=== PATIENT | female | born 1935 | race Caucasian/White ===

== ENCOUNTER 2022-02-19 16:59 | Inpatient (IN) ==
[2022-02-19] MEDS ORDERED: SODIUM CHLORIDE 1,000 ML IV STA (17:37)
--- NOTE | 2022-02-19 17:45 | ED.PDOC ---
General <ASHLY CARR MD - Last Filed: 02/20/22 07:03> ED Provider: Dr. ASHLY CARR MD Chief Complaint: Non-specific Complaint Stated Complaint: mild back and mouth pain and decreased appetite today, poor historian, nonambulating, c/o generalized weakness, no injury, brought by ems from [place] Time Seen by Provider: 02/19/22 17:19 Information Source: [facility] Primary Care Provider: Jani JUST[facility] Nursing and Triage Documentation Reviewed and Agree: Yes Does patient meet sepsis criteria?: No System Inflammatory Response Syndrome: Not Applicable Sepsis Protocol: For patient's 13 years and over: Temp is 96.8 and below OR 101 and greater Pulse >90 BPM Resp >20/minute Acutely Altered Mental Status Are patient's symptoms suggestive of a new infection, such as: -Pneumonia -Skin, Soft Tissue -Endocarditis -UTI -Bone, Joint Infection -Implantable Device -Acute Abdominal Infection -Wound Infection -Meningitis -Blood Stream Catheter Infection -Unknown Review of Systems <ASHLY CARR MD - Last Filed: 02/20/22 07:03> Review Of Systems Constitutional: Reports Malaise and Weakness; Denies Fever Eyes: Denies Vision change Ears, Nose, Mouth, Throat: Reports Mouth pain; Denies Nose discharge Respiratory: Denies Cough, Short of air, Stridor or Wheezing Cardiac: Denies Chest pain GI: Reports Abdominal pain; Denies Vomiting : Denies Dysuria (dubon) Musculoskeletal: Reports Back pain and Neck pain Skin: Denies Bruising or Cyanosis Neurological: Denies Headache All Other Systems: Other PFSH <ASHLY CARR MD - Last Filed: 02/20/22 07:03> Medical History (Updated 02/19/22 @ 22:45 by KWABENA MEYER RN) DVT (deep venous thrombosis) Enlarged lymph node HTN (hypertension) Malignant neoplasm of urethra UTI (urinary tract infection) Weakness Family History (Updated 02/20/22 @ 03:57 by KWABENA MEYER RN) FATHER Asbestos exposure Mother Asbestos exposure Female Reproductive History Menstrual Hx Hysterectomy: No Hx Tubal Ligation: No Physical Exam <ASHLY CARR MD - Last Filed: 02/20/22 07:03> Physical Exam Appearance: Reports Obese Ill-appearing: Mild Pain Distress: Mild Eyes: Reports ANDREW, EOMI and Conjunctiva clear ENT: Reports Dry mucosa; Denies Rhinorrhea Neck: Supple Respiratory: Reports Airway patent, Breath sounds clear and Breath sounds equal Cardiovascular: Reports RRR GI/: Reports Soft and Nontender Musculoskeletal: Reports No edema and Other (ply cutter weak and equal, pulses and s en intact) Skin: Reports Warm and Dry Neurological: Reports Alert Psychiatric: Reports Depressed <DONOVAN BOND MD - Last Filed: 02/19/22 21:32> Radiology Interpretation Radiology Interpretation By: Radiologist Radiology Results: Positive (1. Increasing pelvic and inguinal lymphadenopathy with questionable left pelvic mass. Findings are concerning for the worsening metastatic disease. 2. Lower lobe pulmonary nodule of concern for metastatic disease.) Exam Interpreted: CT Scan Radiology Interpretation By: Radiologist Radiology Results: Negative Exam Interpreted: CXR <DONOVAN BOND MD - Last Filed: 02/19/22 21:32> Critical Care Note Total Critical Care Time (mins): 0 Course <ASHLY CARR MD - Last Filed: 02/20/22 07:03> Course Hematology/Chemistry: 02/20/22 04:38 02/20/22 04:38 Orders, Labs, Meds: Lab Review 02/19/22 02/19/22 02/19/22 17:53 17:53 17:53 WBC RBC Hgb Hct MCV MCH MCHC RDW Coeff of Duy Plt Count Immature Gran % (Auto) Neut % (Auto) Lymph % (Auto) [place] % (Auto) Eos % (Auto) Baso % (Auto) Neut # (Auto) Lymph # (Auto) [place] # (Auto) Eos # (Auto) Baso # (Auto) Immature Gran # (Auto) PT 11.0 INR 1.06 Sodium Potassium Chloride Carbon Dioxide Anion Gap BUN Creatinine Estimated GFR (MDRD) BUN/Creatinine Ratio Glucose Lactic Acid 1.23 Calcium Total Bilirubin AST ALT Alkaline Phosphatase Troponin I < 0.012 Total Protein Albumin Globulin Albumin/Globulin Ratio Urine Color Urine Clarity Urine pH Ur Specific [place] Urine Protein Urine Glucose (UA) Urine Ketones Urine Blood Urine Nitrite Urine Bilirubin Urine Urobilinogen Ur Leukocyte Esterase Urine Microscopic RBC Urine Microscopic WBC Ur Squamous Epith Cells Urine Bacteria Urine Mucus Urine Yeast SARS-CoV-2 Ag (Rapid) 02/19/22 02/19/22 02/19/22 17:53 17:53 17:56 WBC 13.07 H RBC 3.30 L Hgb 10.2 L Hct 32.1 L MCV 97.3 MCH 30.9 MCHC 31.8 RDW Coeff of Duy 15.0 H Plt Count 495 H Immature Gran % (Auto) 0.7 Neut % (Auto) 78.5 H Lymph % (Auto) 8.9 L [place] % (Auto) 6.7 Eos % (Auto) 4.7 Baso % (Auto) 0.5 Neut # (Auto) 10.3 H Lymph # (Auto) 1.2 [place] # (Auto) 0.9 Eos # (Auto) 0.6 Baso # (Auto) 0.1 Immature Gran # (Auto) 0.1 PT INR Sodium 133.1 L Potassium 4.36 Chloride 94.5 L Carbon Dioxide 33.5 H Anion Gap 9.46 BUN 22.7 H Creatinine 1.22 Estimated GFR (MDRD) 42.00 BUN/Creatinine Ratio 18.60 Glucose 95.6 Lactic Acid Calcium 12.65 H Total Bilirubin 0.41 AST 24.9 ALT 9.3 Alkaline Phosphatase 82.3 Troponin I Total Protein 7.50 Albumin 3.57 Globulin 3.93 Albumin/Globulin Ratio 0.90 Urine Color Urine Clarity Urine pH Ur Specific [place] Urine Protein Urine Glucose (UA) Urine Ketones Urine Blood Urine Nitrite Urine Bilirubin Urine Urobilinogen Ur Leukocyte Esterase Urine Microscopic RBC Urine Microscopic WBC Ur Squamous Epith Cells Urine Bacteria Urine Mucus Urine Yeast SARS-CoV-2 Ag (Rapid) Negative 02/19/22 19:00 WBC RBC Hgb Hct MCV MCH MCHC RDW Coeff of Duy Plt Count Immature Gran % (Auto) Neut % (Auto) Lymph % (Auto) [place] % (Auto) Eos % (Auto) Baso % (Auto) Neut # (Auto) Lymph # (Auto) [place] # (Auto) Eos # (Auto) Baso # (Auto) Immature Gran # (Auto) PT INR Sodium Potassium Chloride Carbon Dioxide Anion Gap BUN Creatinine Estimated GFR (MDRD) BUN/Creatinine Ratio Glucose Lactic Acid Calcium Total Bilirubin AST ALT Alkaline Phosphatase Troponin I Total Protein Albumin Globulin Albumin/Globulin Ratio Urine Color Yellow Urine Clarity Slightly Urine pH 6.5 Ur Specific [place] 1.025 Urine Protein Negative Urine Glucose (UA) Negative Urine Ketones Negative Urine Blood Trace-intact H Urine Nitrite Negative Urine Bilirubin Negative Urine Urobilinogen 0.2 Ur Leukocyte Esterase 2+ H Urine Microscopic RBC 2-5 Urine Microscopic WBC 10-20 Ur Squamous Epith Cells 5-10 Urine Bacteria Trace Urine Mucus Trace Urine Yeast 2+ SARS-CoV-2 Ag (Rapid) Orders Category Date Time Status EKG-(ED ONLY) Stat CARDIO 02/19/22 17:37 Completed CBC W/ AUTO DIFF Stat LAB 02/19/22 17:53 Completed CMP [COMPREHENSIVE METABOLIC PANEL] Stat LAB 02/19/22 17:53 Completed COVID-19 ANTIGEN TEST Stat LAB 02/19/22 17:56 Completed LACTIC ACID Stat LAB 02/19/22 17:53 Completed PT WITH INR Stat LAB 02/19/22 17:53 Completed RAPID STREP SCREEN [MOLECULAR GROUP A STREP] Stat LAB 02/19/22 17:58 Completed TROPONIN I Stat LAB 02/19/22 17:53 Completed URINALYSIS C & S IF INDICATED Stat LAB 02/19/22 19:00 Completed URINE CULTURE Stat LAB 02/19/22 19:00 Received Sodium Chloride 0.9% [Sodium Chloride] 1,000 ml MEDS 02/19/22 17:37 Discontinued IV BOLUS CHEST, 1V AP ONLY Stat RADS 02/19/22 17:[address] ABDOMEN/PELVIS WO CONTRAST Stat RADS 02/19/22 17:[address] CERVICAL SPINE W/O CONTRAST Stat RADS 02/19/22 17:[address] LUMBAR SPINE W/O CONTRAST Stat RADS 02/19/22 17:[address] THORACIC SPINE W/O CONTRAST Stat RADS 02/19/22 17:37 Completed Medications Generic Name Dose Route Start Last Admin Trade Name Freq PRN Reason Stop Dose Admin Acetaminophen 650 mg 02/20/22 01:55 02/20/22 02:11 Acetaminophen 325 Mg Tablet PO 650 mg Q6H PRN Administration Pain Bisacodyl 10 mg 02/19/22 21:27 Bisacodyl 10 Mg Supp.Rect RC DAILY PRN constipation Enoxaparin Sodium 40 mg 02/20/22 09:00 Enoxaparin Sodium 40 Mg/0.4 Ml Syr SUBCUT DAILY GEORGE CEFTRIAXONE/D5W 1 GM PREMIX 1 gm in 50 mls @ 75 mls/hr 02/19/22 21:30 02/19/22 21:52 Rocephin 1 Gm/50 Ml D5w IV 02/22/22 21:29 75 mls/hr BEDTIME GEORGE Administration Sodium Chloride 500 mls @ 125 mls/hr 02/19/22 23:00 02/19/22 23:35 Sodium Chloride IV 125 mls/hr .Q4H GEORGE Administration Magnesium Hydroxide 5 ml 02/19/22 21:27 Magnesium Hydroxide 30 Ml Cup PO DAILY PRN Constipation Ondansetron HCl 4 mg 02/19/22 21:19 Ondansetron Hcl/Pf 4 Mg/2 Ml Sdv IVP Q6H PRN Nausea / Vomiting Oxycodone HCl 5 mg 02/19/22 21:27 02/19/22 22:47 Oxycodone Hcl 5 Mg Tablet PO 5 mg Q6H PRN Administration Severe pain Saccharomyces Boulardii 250 mg 02/20/22 09:00 Saccharomyces Boulardii 250 Mg Capsule PO BID GEORGE Discontinued Medications Generic Name Dose Route Start Last Admin Trade Name Freq PRN Reason Stop Dose Admin Sodium Chloride 1,000 mls @ 1,000 mls/hr 02/19/22 17:37 02/19/22 19:26 Sodium Chloride IV 02/19/22 18:36 1,000 mls/hr BOLUS STA Administration Vital Signs: Temp Pulse Resp BP Pulse Ox 02/19/22 17:03 97.1 F L 73 18 106/46 L 94 L <DONOVAN BOND MD - Last Filed: 02/19/22 21:32> Course Orders, Labs, Meds: Lab Review 02/19/22 02/19/22 02/19/22 17:53 17:53 17:53 WBC RBC Hgb Hct MCV MCH MCHC RDW Coeff of Duy Plt Count Immature Gran % (Auto) Neut % (Auto) Lymph % (Auto) [place] % (Auto) Eos % (Auto) Baso % (Auto) Neut # (Auto) Lymph # (Auto) [place] # (Auto) Eos # (Auto) Baso # (Auto) Immature Gran # (Auto) PT 11.0 INR 1.06 Sodium Potassium Chloride Carbon Dioxide Anion Gap BUN Creatinine Estimated GFR (MDRD) BUN/Creatinine Ratio Glucose Lactic Acid 1.23 Calcium Total Bilirubin AST ALT Alkaline Phosphatase Troponin I < 0.012 Total Protein Albumin Globulin Albumin/Globulin Ratio Urine Color Urine Clarity Urine pH Ur Specific [place] Urine Protein Urine Glucose (UA) Urine Ketones Urine Blood Urine Nitrite Urine Bilirubin Urine Urobilinogen Ur Leukocyte Esterase Urine Microscopic RBC Urine Microscopic WBC Ur Squamous Epith Cells Urine Bacteria Urine Mucus Urine Yeast SARS-CoV-2 Ag (Rapid) 02/19/22 02/19/22 02/19/22 17:53 17:53 17:56 WBC 13.07 H RBC 3.30 L Hgb 10.2 L Hct 32.1 L MCV 97.3 MCH 30.9 MCHC 31.8 RDW Coeff of Duy 15.0 H Plt Count 495 H Immature Gran % (Auto) 0.7 Neut % (Auto) 78.5 H Lymph % (Auto) 8.9 L [place] % (Auto) 6.7 Eos % (Auto) 4.7 Baso % (Auto) 0.5 Neut # (Auto) 10.3 H Lymph # (Auto) 1.2 [place] # (Auto) 0.9 Eos # (Auto) 0.6 Baso # (Auto) 0.1 Immature Gran # (Auto) 0.1 PT INR Sodium 133.1 L Potassium 4.36 Chloride 94.5 L Carbon Dioxide 33.5 H Anion Gap 9.46 BUN 22.7 H Creatinine 1.22 Estimated GFR (MDRD) 42.00 BUN/Creatinine Ratio 18.60 Glucose 95.6 Lactic Acid Calcium 12.65 H Total Bilirubin 0.41 AST 24.9 ALT 9.3 Alkaline Phosphatase 82.3 Troponin I Total Protein 7.50 Albumin 3.57 Globulin 3.93 Albumin/Globulin Ratio 0.90 Urine Color Urine Clarity Urine pH Ur Specific [place] Urine Protein Urine Glucose (UA) Urine Ketones Urine Blood Urine Nitrite Urine Bilirubin Urine Urobilinogen Ur Leukocyte Esterase Urine Microscopic RBC Urine Microscopic WBC Ur Squamous Epith Cells Urine Bacteria Urine Mucus Urine Yeast SARS-CoV-2 Ag (Rapid) Negative 02/19/22 19:00 WBC RBC Hgb Hct MCV MCH MCHC RDW Coeff of Duy Plt Count Immature Gran % (Auto) Neut % (Auto) Lymph % (Auto) [place] % (Auto) Eos % (Auto) Baso % (Auto) Neut # (Auto) Lymph # (Auto) [place] # (Auto) Eos # (Auto) Baso # (Auto) Immature Gran # (Auto) PT INR Sodium Potassium Chloride Carbon Dioxide Anion Gap BUN Creatinine Estimated GFR (MDRD) BUN/Creatinine Ratio Glucose Lactic Acid Calcium Total Bilirubin AST ALT Alkaline Phosphatase Troponin I Total Protein Albumin Globulin Albumin/Globulin Ratio Urine Color Yellow Urine Clarity Slightly Urine pH 6.5 Ur Specific [place] 1.025 Urine Protein Negative Urine Glucose (UA) Negative Urine Ketones Negative Urine Blood Trace-intact H Urine Nitrite Negative Urine Bilirubin Negative Urine Urobilinogen 0.2 Ur Leukocyte Esterase 2+ H Urine Microscopic RBC 2-5 Urine Microscopic WBC 10-20 Ur Squamous Epith Cells 5-10 Urine Bacteria Trace Urine Mucus Trace Urine Yeast 2+ SARS-CoV-2 Ag (Rapid) Orders Category Date Time Status EKG-(ED ONLY) Stat CARDIO 02/19/22 17:37 Completed CBC W/ AUTO DIFF Stat LAB 02/19/22 17:53 Completed CMP [COMPREHENSIVE METABOLIC PANEL] Stat LAB 02/19/22 17:53 Completed COVID-19 ANTIGEN TEST Stat LAB 02/19/22 17:56 Completed LACTIC ACID Stat LAB 02/19/22 17:53 Completed PT WITH INR Stat LAB 02/19/22 17:53 Completed RAPID STREP SCREEN [MOLECULAR GROUP A STREP] Stat LAB 02/19/22 17:58 Completed TROPONIN I Stat LAB 02/19/22 17:53 Completed URINALYSIS C & S IF INDICATED Stat LAB 02/19/22 19:00 Completed URINE CULTURE Stat LAB 02/19/22 19:00 Received Sodium Chloride 0.9% [Sodium Chloride] 1,000 ml MEDS 02/19/22 17:37 Discontinued IV BOLUS CHEST, 1V AP ONLY Stat RADS 02/19/22 17:[address] ABDOMEN/PELVIS WO CONTRAST Stat RADS 02/19/22 17:[address] CERVICAL SPINE W/O CONTRAST Stat RADS 02/19/22 17:[address] LUMBAR SPINE W/O CONTRAST Stat RADS 02/19/22 17:[address] THORACIC SPINE W/O CONTRAST Stat RADS 02/19/22 17:37 Completed Medications Generic Name Dose Route Start Last Admin Trade Name Freq PRN Reason Stop Dose Admin Acetaminophen 650 mg 02/20/22 01:55 02/20/22 02:11 Acetaminophen 325 Mg Tablet PO 650 mg Q6H PRN Administration Pain Bisacodyl 10 mg 02/19/22 21:27 Bisacodyl 10 Mg Supp.Rect RC DAILY PRN constipation Enoxaparin Sodium 40 mg 02/20/22 09:00 Enoxaparin Sodium 40 Mg/0.4 Ml Syr SUBCUT DAILY GEORGE CEFTRIAXONE/D5W 1 GM PREMIX 1 gm in 50 mls @ 75 mls/hr 02/19/22 21:30 02/19/22 21:52 Rocephin 1 Gm/50 Ml D5w IV 02/22/22 21:29 75 mls/hr BEDTIME GEORGE Administration Sodium Chloride 500 mls @ 125 mls/hr 02/19/22 23:00 02/19/22 23:35 Sodium Chloride IV 125 mls/hr .Q4H GEORGE Administration Magnesium Hydroxide 5 ml 02/19/22 21:27 Magnesium Hydroxide 30 Ml Cup PO DAILY PRN Constipation Ondansetron HCl 4 mg 02/19/22 21:19 Ondansetron Hcl/Pf 4 Mg/2 Ml Sdv IVP Q6H PRN Nausea / Vomiting Oxycodone HCl 5 mg 02/19/22 21:27 02/19/22 22:47 Oxycodone Hcl 5 Mg Tablet PO 5 mg Q6H PRN Administration Severe pain Saccharomyces Boulardii 250 mg 02/20/22 09:00 Saccharomyces Boulardii 250 Mg Capsule PO BID GEORGE Discontinued Medications Generic Name Dose Route Start Last Admin Trade Name Freq PRN Reason Stop Dose Admin Sodium Chloride 1,000 mls @ 1,000 mls/hr 02/19/22 17:37 02/19/22 19:26 Sodium Chloride IV 02/19/22 18:36 1,000 mls/hr BOLUS STA Administration Vital Signs: Temp Pulse Resp BP Pulse Ox 02/19/22 17:03 97.1 F L 73 18 106/46 L 94 L Discharge Plan Discharge Patient Disposition: PLACED OBSERVATION Discharge Problem: Hypercalcemia, Dehydration, mild, Dry mouth ED Provider: ASHLY CARR Condition: Fair <ASHLY CARR MD - Last Filed: 02/20/22 07:03> Physician Progress Note: []care to Dr Bond at 19:00
--- NOTE | 2022-02-19 19:10 | CT ---
EXAM: CT thoracic spine without contrast HISTORY: Back pain. COMPARISON: CT thoracic 10/02/2016 the heading TECHNIQUE: Serial axial images of the thoracic spine were obtained without contrast. These were vie wed in multiple planes. FINDINGS: There is no acute compression fracture or subluxation. There is mild disc space narrowing with osteophyte formation. There is mild facet arthropathy. There is no lytic or blastic lesion. There is mild fibrosis with interstitial thickening and small airways thickening. There is a small c avitary lesion in the left upper lobe measuring 0.9 cm. IMPRESSION: 1. No acute compression fracture or subluxation with scattered degenerative disease. 2. Scattered fibrosis and interstitial thickening in the lungs. There is a small cavitary lesion in the left upper lobe. Follow-up CT chest is recommended. All CT scans are performed using dose optimization techniques as appropriate to the performed exam an d include at least one of the following: Automated exposure control, adjustment of the mA and/or kV according t o size, and the use of iterative reconstruction technique.
[2022-02-19 19:11] LABS: BILIRUBIN,URINE Negative (NEGATIVE); CLARITY,URINE Slightly (CLEAR); COLOR,URINE Yellow (YELLOW); GLUCOSE, URINE (UA) Negative (NEGATIVE); KETONES,URINE Negative (NEGATIVE); LEUKOCYTE ESTERASE ,URINE 2+ (NEGATIVE); NITRITE,URINE Negative (NEGATIVE); PH,URINE 6.5 (5-9); PROTEIN,URINE Negative (NEGATIVE); URINE, BLOOD Trace-intact (NEGATIVE); UROBILINOGEN,URINE 0.2 (0.2)
--- NOTE | 2022-02-19 19:12 | CT ---
EXAM: CT cervical spine. HISTORY: Back pain. No known injury. COMPARISON: None. TECHNIQUE: Contiguous axial images at 2 mm intervals were obtained from the base of the skull to the thoracic spine. Sagittal and coronal reformats were reviewed. No contrast was given. FINDINGS: The patient is leaning to the right which limits evaluation. There is widening of the atla nto-axial this is on the left which may be due to positioning. There is normal curvature and alignme nt. The vertebral heights are well maintained. There are no acute or healing fractures. There are n o lytic or blastic lesions. Extensive degenerative changes. No disc bulges are identified. The sof t tissues are normal. The airway is widely patent. Limited views of the lung apices are normal. C 2-3: No spinal canal or neural foraminal narrowing. C 3-4: Disc narrowing. Facet hypertrophy. Bilateral neural foramen narrowing, left greater than rig ht. C 4-5: Disc narrowing. Posterior osteophytes. Facet hypertrophy. Severe right neural foramen narro wing. C 5-6: Disc narrowing. Large posterior osteophytes. Severe right neural foramen narrowing. Mild le ft neural foramen narrowing. C 6-7: Disc narrowing. Posterior osteophytes. Right neural foraminal narrowing. IMPRESSION: 1. No acute fractures. 2. Asymmetric widening of the atlanto-axial this is on the left may be due to positioning. 3. 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 All CT scans are performed using dose optimization techniques as appropriate to the performed exam an d include at least one of the following: Automated exposure control, adjustment of the mA and/or kV according t o size, and the use of iterative reconstruction technique.
[2022-02-19 19:18] LABS: BACTERIA,URINE TRACE (NOT PRESENT); MUCUS,URINE TRACE (NOT PRESENT); YEAST,URINE 2+ (NOT PRESENT)
--- NOTE | 2022-02-19 19:20 | CT ---
EXAM: CT of the lumbar spine without contrast History: Lower back pain. Technique: Multiplanar CT images through the lumbar spine were obtained without the administration o f IV contrast Findings: No acute fracture or subluxation of the lumbar spine. Intact posterior fusion hardware at L4-5. No suspicious lytic or blastic osseous lesions. Osteopenia. Degenerative changes of the sacr oiliac joints with bridging osteophytes seen on the left. All T12-L1: No significant central canal stenosis or neural foraminal narrowing. L1-2: No significant central canal stenosis or neural foraminal narrowing. L2-3: No significant central canal stenosis. Severe right and moderate left neural foraminal narrow ing secondary to ligamentous and facet hypertrophy. L3-4: Evaluation is limited due to streak artifact from the hardware but there is probably moderate central canal stenosis. Moderate to severe bilateral neural foraminal narrowing secondary to ligamen tous and facet hypertrophy L4-5: Evaluation of the spinal canal is limited due to the streak artifact from hardware. No obviou s bony neural foraminal narrowing. Moderate to severe bilateral neural foraminal narrowing secondary to ligamentous and facet hypertrophy. L5-S1: No significant bony central canal stenosis or neural foraminal narrowing. Impression: 1. No acute osseous abnormality of the lumbar spine. 2. Intact hardware. 3. Degenerative changes with level by level analysis as detailed above. All CT scans are performed using dose optimization techniques as appropriate to the performed exam an d include at least one of the following: Automated exposure control, adjustment of the mA and/or kV according t o size, and the use of iterative reconstruction technique.
--- NOTE | 2022-02-19 19:21 | CT ---
EXAM: CT abdomen pelvis without contrast HISTORY: Abdominal pain COMPARISON: CT abdomen pelvis 01/09/2022 TECHNIQUE: Serial axial images of the abdomen pelvis were performed from the lung bases through the inferior pelvis without contrast. These were viewed in multiple planes. FINDINGS: Lung bases demonstrate bronchiectasis and fibrosis. There is a 0.8 cm left lower lobe pul monary nodule on image 161. There is a 1 cm pulmonary nodule in the right lower lobe on image 154. Evaluation is limited. The liver is unremarkable. Gallbladder is distended. Kidneys are unremarkab le. Spleen is unremarkable. The pancreas is normal. The stomach is minimally distended. The small bowel in the abdomen pelvis is unremarkable. The colon demonstrates a moderate amount of s tool. There is a heterogeneous mass in the left pelvis measuring approximately 3.4 cm in diameter. There is an additional mass adjacent to the distal colon in the left pelvis measuring 2.6 centimeters which has increased in size. There is bilateral pelvic lymphadenopathy measuring 2.0 x 2.9 cm in th e right and up to 2.6 cm on the left. There is a large right inguinal mass which has increased measu ring 4.1 x 2.9 cm. An enlarged left inguinal lymph node measuring 2.4 x 2.2 cm. There is degenerativ e disease throughout the lumbar spine with hardware at L4-L5. IMPRESSION: 1. Increasing pelvic and inguinal lymphadenopathy with questionable left pelvic mass. Findings are concerning for the worsening metastatic disease. 2. Lower lobe pulmonary nodule of concern for metastatic disease. 3. Otherwise no significant interval change. All CT scans are performed using dose optimization techniques as appropriate to the performed exam an d include at least one of the following: Automated exposure control, adjustment of the mA and/or kV according t o size, and the use of iterative reconstruction technique.
[2022-02-19 19:34] LABS: BASOPHILS # (AUTO) 0.1 K/uL (0-0.2); BASOPHILS % (AUTO) 0.5 % (0.0-3.0); EOSINOPHILS # (AUTO) 0.6 K/ul (0.0-0.7); EOSINOPHILS % (AUTO) 4.7 % (0.0-7.0); HEMATOCRIT 32.1 % (37.0-47.0); HEMOGLOBIN 10.2 g/dl (12.0-16.0); IMMATURE GRANULOCYTE # (AUTO) 0.1 (0.0-1.0); IMMATURE GRANULOCYTE % (AUTO) 0.7 % (0.0-5.0); LYMPHOCYTES # (AUTO) 1.2 K/uL (0.60-3.4); LYMPHOCYTES % (AUTO) 8.9 (10.0-50.0); MEAN CORPUSCULAR HEMOGLOBIN 30.9 pg (27.0-31.0); MEAN CORPUSCULAR HGB CONC 31.8 (31.8-35.4); MEAN CORPUSCULAR VOLUME 97.3 fl (81.0-99.0); MONOCYTES # (AUTO) 0.9 K/uL (0.4-2.0); MONOCYTES % (AUTO) 6.7 (0-10); NEUTROPHILS # (AUTO) 10.3 K/ul (2.0-6.9); NEUTROPHILS % (AUTO) 78.5 % (42.2-75.2); PLATELET COUNT 495 10^3/uL (140-440); WHITE BLOOD COUNT 13.07 K/ul (4.6-10.2)
[2022-02-19 19:39] LABS: ALANINE AMINOTRANSFERASE 9.3 U/L (0-35); ALBUMIN 3.57 g/dL (3.5-5.0); ALKALINE PHOSPHATASE 82.3 U/L (53-141); ASPARTATE AMINO TRANSFERASE 24.9 U/L (14-36); BILIRUBIN,TOTAL 0.41 mg/dL (0.2-1.3); BLOOD UREA NITROGEN 22.7 mg/dL (7-17); CALCIUM 12.65 mg/dL (8.4-10.2); CARBON DIOXIDE 33.5 mmol/L (22-30.0); CHLORIDE 94.5 mmol/L (98-107); CREATININE 1.22 mg/dL (0.60-1.30); GLUCOSE 95.6 mg/dL (74-106); POTASSIUM 4.36 mmol/L (3.5-5.1); SODIUM 133.1 mmol/L (134.5-145); TOTAL PROTEIN 7.5 g/dL (6.3-8.2)
--- NOTE | 2022-02-19 19:52 | DI ---
EXAM: Single frontal view of the chest HISTORY: Pain post fall. COMPARISON: CT thoracic spine same day FINDINGS: There is scattered degenerative disease throughout the spine and shoulders. The cavitary n odule in the left upper lobe and the bilateral pulmonary nodules from prior CT are not visualized on x-ray. IMPRESSION: No acute abnormality to account for pain.
[2022-02-19] MEDS ORDERED: ZOFRAN 4 MG/2 ML IVP PRN (21:19)
[2022-02-19] MEDS ORDERED: DULCOLAX RC PRN (21:27)
[2022-02-19] MEDS ORDERED: MILK OF MAGNESIA PO PRN (21:27)
[2022-02-19] MEDS: ROCEPHIN 1 GM/50 ML D5W 1 GM/50 ML BAG IV SCH (21:52)
[2022-02-19] MEDS: OXYCODONE PO PRN (22:47)
[2022-02-19 23:04] VITALS: BMI 20.9
[2022-02-19] MEDS: SODIUM CHLORIDE 500 ML IV SCH (23:35)
[2022-02-20] MEDS: TYLENOL PO PRN (02:11)
[2022-02-20 05:00] LABS: BASOPHILS # (AUTO) 0.1 K/uL (0-0.2); BASOPHILS % (AUTO) 0.5 % (0.0-3.0); EOSINOPHILS # (AUTO) 0.8 K/ul (0.0-0.7); EOSINOPHILS % (AUTO) 6.4 % (0.0-7.0); HEMATOCRIT 27.3 % (37.0-47.0); HEMOGLOBIN 8.9 g/dl (12.0-16.0); IMMATURE GRANULOCYTE # (AUTO) 0.1 (0.0-1.0); IMMATURE GRANULOCYTE % (AUTO) 0.6 % (0.0-5.0); LYMPHOCYTES # (AUTO) 1.1 K/uL (0.60-3.4); LYMPHOCYTES % (AUTO) 9.5 (10.0-50.0); MEAN CORPUSCULAR HEMOGLOBIN 31.6 pg (27.0-31.0); MEAN CORPUSCULAR HGB CONC 32.6 (31.8-35.4); MEAN CORPUSCULAR VOLUME 96.8 fl (81.0-99.0); MONOCYTES # (AUTO) 0.9 K/uL (0.4-2.0); MONOCYTES % (AUTO) 7.8 (0-10); NEUTROPHILS # (AUTO) 8.8 K/ul (2.0-6.9); NEUTROPHILS % (AUTO) 75.2 % (42.2-75.2); PLATELET COUNT 419 10^3/uL (140-440); RDW COEFFICIENT OF VARIATION 14.7 % (11.6-14.8); RED BLOOD COUNT 2.82 10^6/ul (4.20-5.40); WHITE BLOOD COUNT 11.74 K/ul (4.6-10.2)
[2022-02-20 05:14] LABS: BLOOD UREA NITROGEN 20.3 mg/dL (7-17); CALCIUM 11.63 mg/dL (8.4-10.2); CARBON DIOXIDE 27.4 mmol/L (22-30.0); CHLORIDE 101.5 mmol/L (98-107); CREATININE 1.06 mg/dL (0.60-1.30); GLUCOSE 89.4 mg/dL (74-106); POTASSIUM 3.7 mmol/L (3.5-5.1); SODIUM 133.2 mmol/L (134.5-145)
[2022-02-20] MEDS: SODIUM CHLORIDE 500 ML IV SCH ×2 (07:08→08:23)
[2022-02-20] MEDS: OXYCODONE PO PRN ×2 (07:14→17:18)
[2022-02-20] MEDS: SODIUM CHLORIDE 1,000 ML IV SCH ×2 (08:50→22:54)
[2022-02-20] MEDS: LOVENOX SUBCUT SCH (08:55)
[2022-02-20] MEDS: NYSTATIN ORAL SUSP PO SCH ×4 (08:55→20:37)
[2022-02-20] MEDS: FLORASTOR PO SCH ×2 (08:55→20:37)
[2022-02-20] MEDS: NYSTOP POWDER TP SCH ×4 (08:55→20:38)
--- NOTE | 2022-02-20 09:30 | PCM.PROG ---
Date Seen by Provider: 02/20/22 Time Seen by Provider: 09:24 Subjective: cat scan showed mets, pt informed of findings, pt is consulting with family members to determine if she wants to see an oncologist Objective: Vitals: T=97.4 F, P=67, R=18, BP=96/51, SPO2=95 HEENT: []conjunctiva clear Neck: []supple Lungs: [] clear CVS: []RRR Abdomen: []soft and nontender Extremities: []warm and dry Neurological: []alert and oriented Skin: []bilateral groin rash suggests yeast Lab/Tests/Diagnostic Imaging: [] calcium 11.6, wbc 11.7, Hb 8.9 (1) Metastasis: Status: Acute Code(s): C79.9 - Secondary malignant neoplasm of unspecified site SNOMED Code(s): 180595259 (2) Hypercalcemia: Status: Acute Code(s): E83.52 - Hypercalcemia SNOMED Code(s): 42791042 (3) Dry mouth: Status: Acute Code(s): R68.2 - Dry mouth, unspecified SNOMED Code(s): 70280937 (4) Dehydration, mild: Status: Acute Code(s): E86.0 - Dehydration SNOMED Code(s): 3609795097132 Assessment: pt refused nystatin powder, will start oral diflucan, swish and swallow for dry mouth, pt has no allergy to tylenol Plan: check Mg level, continue IV hydration with NS 125cc/hr, start pamidronate 30mg iv over 4 hrs for hypercalcemia care to Dr Vilchis at 19:00
[2022-02-20] MEDS: DIFLUCAN PO SCH (09:40)
[2022-02-20] MEDS ORDERED: MILK OF MAGNESIA PO PRN (10:00)
[2022-02-20] MEDS ORDERED: PAMIDRONATE DISODIUM IV ONE (14:00)
[2022-02-20] MEDS ORDERED: SODIUM CHLORIDE IV ONE (14:00)
[2022-02-20] MEDS: ROCEPHIN 1 GM/50 ML D5W 1 GM/50 ML BAG IV SCH (21:29)
[2022-02-21] MEDS: OXYCODONE PO PRN ×2 (00:29→19:31)
[2022-02-21] MEDS: NYSTATIN ORAL SUSP PO SCH ×4 (05:41→20:34)
[2022-02-21 06:03] LABS: BLOOD UREA NITROGEN 15.2 mg/dL (7-17); CALCIUM 10.49 mg/dL (8.4-10.2); CARBON DIOXIDE 23.9 mmol/L (22-30.0); CHLORIDE 108.8 mmol/L (98-107); CREATININE 0.86 mg/dL (0.60-1.30); GLUCOSE 87.6 mg/dL (74-106); POTASSIUM 3.74 mmol/L (3.5-5.1); SODIUM 134.5 mmol/L (134.5-145)
[2022-02-21 06:16] LABS: BASOPHILS % (AUTO) 0.3 % (0.0-3.0); EOSINOPHILS # (AUTO) 0.6 K/ul (0.0-0.7); EOSINOPHILS % (AUTO) 5.8 % (0.0-7.0); HEMATOCRIT 27.7 % (37.0-47.0); HEMOGLOBIN 8.7 g/dl (12.0-16.0); IMMATURE GRANULOCYTE # (AUTO) 0.1 (0.0-1.0); IMMATURE GRANULOCYTE % (AUTO) 0.6 % (0.0-5.0); LYMPHOCYTES % (AUTO) 8.9 (10.0-50.0); MEAN CORPUSCULAR HEMOGLOBIN 30.9 pg (27.0-31.0); MEAN CORPUSCULAR HGB CONC 31.4 (31.8-35.4); MEAN CORPUSCULAR VOLUME 98.2 fl (81.0-99.0); MONOCYTES # (AUTO) 0.8 K/uL (0.4-2.0); MONOCYTES % (AUTO) 7.3 (0-10); NEUTROPHILS # (AUTO) 8.5 K/ul (2.0-6.9); NEUTROPHILS % (AUTO) 77.1 % (42.2-75.2); PLATELET COUNT 362 10^3/uL (140-440); RDW COEFFICIENT OF VARIATION 15.1 % (11.6-14.8); RED BLOOD COUNT 2.82 10^6/ul (4.20-5.40); WHITE BLOOD COUNT 11.04 K/ul (4.6-10.2)
[2022-02-21] MEDS ORDERED: OXYCODONE PO PRN (06:23)
[2022-02-21] MEDS: SODIUM CHLORIDE 1,000 ML IV SCH ×4 (06:34→21:56)
[2022-02-21] MEDS: NYSTOP POWDER TP SCH ×2 (08:29→20:33)
[2022-02-21] MEDS: DIFLUCAN PO SCH (08:31)
[2022-02-21] MEDS: FLORASTOR PO SCH ×2 (08:31→20:34)
[2022-02-21] MEDS: LOVENOX SUBCUT SCH (08:31)
--- NOTE | 2022-02-21 10:57 | PCM.PROG ---
Date Seen by Provider: 02/21/22 Time Seen by Provider: 10:54 Subjective: pt probably over medicated with oxy, pt w/o complaint, decreased appetite, will continue iv fluid, still waiting to hear back from Saranya regarding treatment wishes for metastatic cancer Objective: Vitals: T=98.3 F, P=70, R=16, RV=817/61, SPO2=97 HEENT: []conjunctiva clear Neck: []supple Lungs: [] clear CVS: []RRR Abdomen: []soft and nontender Extremities: []warm and dry Neurological: []oriented Skin: []pink Lab/Tests/Diagnostic Imaging: [] calcium 10.4 (1) Metastasis: Status: Acute Code(s): C79.9 - Secondary malignant neoplasm of unspecified site SNOMED Code(s): 636131591 (2) Hypercalcemia: Status: Acute Code(s): E83.52 - Hypercalcemia SNOMED Code(s): 35956992 (3) Dry mouth: Status: Acute Code(s): R68.2 - Dry mouth, unspecified SNOMED Code(s): 86397123 (4) Dehydration, mild: Status: Acute Code(s): E86.0 - Dehydration SNOMED Code(s): 4288430398854 Plan: decrease oxycodone from 7.5 to 5mg q6 prn, start gabapentin 300mg po qd care to Dr Vilchis at 19:00
[2022-02-21] MEDS: TYLENOL PO PRN (17:24)
[2022-02-21] MEDS: ROCEPHIN 1 GM/50 ML D5W 1 GM/50 ML BAG IV SCH (20:31)
[2022-02-22] MEDS: OXYCODONE PO PRN ×2 (04:07→13:10)
[2022-02-22] MEDS: SODIUM CHLORIDE 1,000 ML IV SCH ×3 (06:26→17:09)
[2022-02-22] MEDS: NYSTATIN ORAL SUSP PO SCH ×4 (06:26→20:36)
[2022-02-22 07:42] LABS: BASOPHILS # (AUTO) 0.1 K/uL (0-0.2); BASOPHILS % (AUTO) 0.4 % (0.0-3.0); EOSINOPHILS # (AUTO) 0.6 K/ul (0.0-0.7); EOSINOPHILS % (AUTO) 4.9 % (0.0-7.0); HEMATOCRIT 30.2 % (37.0-47.0); HEMOGLOBIN 9.3 g/dl (12.0-16.0); IMMATURE GRANULOCYTE # (AUTO) 0.1 (0.0-1.0); IMMATURE GRANULOCYTE % (AUTO) 0.6 % (0.0-5.0); LYMPHOCYTES # (AUTO) 0.9 K/uL (0.60-3.4); LYMPHOCYTES % (AUTO) 7.5 (10.0-50.0); MEAN CORPUSCULAR HEMOGLOBIN 30.5 pg (27.0-31.0); MEAN CORPUSCULAR HGB CONC 30.8 (31.8-35.4); MONOCYTES # (AUTO) 0.7 K/uL (0.4-2.0); MONOCYTES % (AUTO) 6.2 (0-10); NEUTROPHILS # (AUTO) 9.1 K/ul (2.0-6.9); NEUTROPHILS % (AUTO) 80.4 % (42.2-75.2); PLATELET COUNT 408 10^3/uL (140-440); RDW COEFFICIENT OF VARIATION 15.3 % (11.6-14.8); RED BLOOD COUNT 3.05 10^6/ul (4.20-5.40); WHITE BLOOD COUNT 11.33 K/ul (4.6-10.2)
[2022-02-22 07:59] LABS: ALANINE AMINOTRANSFERASE 7.7 U/L (0-35); ALBUMIN 2.59 g/dL (3.5-5.0); ALKALINE PHOSPHATASE 61.7 U/L (53-141); ASPARTATE AMINO TRANSFERASE 21.6 U/L (14-36); BILIRUBIN,TOTAL 0.24 mg/dL (0.2-1.3); BLOOD UREA NITROGEN 10.2 mg/dL (7-17); CALCIUM 9.51 mg/dL (8.4-10.2); CARBON DIOXIDE 23.3 mmol/L (22-30.0); CHLORIDE 109.4 mmol/L (98-107); CREATININE 0.77 mg/dL (0.60-1.30); GLUCOSE 89.7 mg/dL (74-106); POTASSIUM 3.54 mmol/L (3.5-5.1); SODIUM 136.6 mmol/L (134.5-145); TOTAL PROTEIN 6.05 g/dL (6.3-8.2)
[2022-02-22] MEDS: FLORASTOR PO SCH ×2 (08:35→20:35)
[2022-02-22] MEDS: LOVENOX SUBCUT SCH (08:35)
[2022-02-22] MEDS: NYSTOP POWDER TP SCH ×2 (08:35→20:36)
[2022-02-22] MEDS: DIFLUCAN PO SCH (08:35)
[2022-02-22] MEDS ORDERED: NEURONTIN PO SCH (09:00)
--- NOTE | 2022-02-22 09:14 | PCM.PROG ---
Date Seen by Provider: 02/22/22 Time Seen by Provider: 09:11 Subjective: pt bed bound (nursing turning pt q2 hrs), pt wakefulness improved on lower narcotic dose Objective: Vitals: T=98.0 F, P=76, R=18, TO=050/62, SPO2=97 HEENT: []conjunctiva clear Neck: []supple Lungs: [] clear CVS: []RRR Abdomen: []soft and nontender Extremities: []warm and dry Neurological: []alert Skin: []pink Lab/Tests/Diagnostic Imaging: [] calcium 9.5 (1) Metastasis: Status: Acute Code(s): C79.9 - Secondary malignant neoplasm of unspecified site SNOMED Code(s): 526859138 (2) Hypercalcemia: Status: Acute Code(s): E83.52 - Hypercalcemia SNOMED Code(s): 21067039 (3) Dry mouth: Status: Acute Code(s): R68.2 - Dry mouth, unspecified SNOMED Code(s): 68651697 (4) Dehydration, mild: Status: Acute Code(s): E86.0 - Dehydration SNOMED Code(s): 9207137909004 Plan: family requests stopping gabapentin as it makes her legs restless, feeding pt w/ assistance only, awaiting speech pathology eval, start discharge planning, family is aware of pt cancer diagnosis and states that pt is scheduled for a PET scan at [facility] to Dr Vilchis at 19:00
[2022-02-22] MEDS: ROCEPHIN 1 GM/50 ML D5W 1 GM/50 ML BAG IV SCH (20:34)
[2022-02-23] MEDS: OXYCODONE PO PRN ×3 (04:56→21:38)
[2022-02-23] MEDS: SODIUM CHLORIDE 1,000 ML IV SCH ×2 (05:44→20:10)
[2022-02-23] MEDS: NYSTATIN ORAL SUSP PO SCH ×4 (05:47→20:09)
[2022-02-23 06:36] LABS: BILIRUBIN,URINE Negative (NEGATIVE); CLARITY,URINE Clear (CLEAR); COLOR,URINE Yellow (YELLOW); GLUCOSE, URINE (UA) Negative (NEGATIVE); KETONES,URINE Negative (NEGATIVE); LEUKOCYTE ESTERASE ,URINE Trace (NEGATIVE); NITRITE,URINE Negative (NEGATIVE); PH,URINE 5.5 (5-9); PROTEIN,URINE Negative (NEGATIVE); URINE, BLOOD Trace-lysed (NEGATIVE); UROBILINOGEN,URINE 0.2 (0.2)
[2022-02-23 06:41] LABS: URINE RBC, MICROSCOPIC 30-50 (0-2); URINE WBC, MICROSCOPIC 20-30 (0-2)
[2022-02-23 06:42] LABS: BACTERIA,URINE 2+ (NOT PRESENT); MUCUS,URINE 2+ (NOT PRESENT)
[2022-02-23] MEDS: FLORASTOR PO SCH ×2 (08:41→20:09)
[2022-02-23] MEDS: LOVENOX SUBCUT SCH (08:42)
[2022-02-23] MEDS: NYSTOP POWDER TP SCH ×2 (08:42→20:09)
[2022-02-23] MEDS ORDERED: MAGNESIUM SULFATE 1 GM/2 ML VIAL 2 GM in SODIUM CHLORIDE 100ML 100 ML IV ONE (10:44)
--- NOTE | 2022-02-23 10:51 | PCM.PROG ---
Date Seen by Provider: 02/23/22 Time Seen by Provider: 10:00 Subjective: Feeling better. Able to take eat and drink. No new problems. Objective: Vitals: T=98.2 F, P=72, R=14, ZP=945/57, SPO2=96 HEENT: [wnl] Neck: [supple] Lungs: [overall diminshed, but clear] CVS: [RRR] Abdomen: [soft, BS] Extremities: [Intact] Neurological: [Grossly intact] Skin: [WNL] Lab/Tests/Diagnostic Imaging: [Calcium coming down, 9-10 range today, Renal fxn improved, Mg low.] (1) Metastasis: Status: Acute Code(s): C79.9 - Secondary malignant neoplasm of unspecified site SNOMED Code(s): 982639121 Assessment: Unchanged. (2) Hypercalcemia: Status: Acute Code(s): E83.52 - Hypercalcemia SNOMED Code(s): 88220706 Assessment: Improving, Ca 9.5 today. (3) Dehydration, mild: Status: Acute Code(s): E86.0 - Dehydration SNOMED Code(s): 8621429418502 Assessment: Improved with IVF, BUN 10 and Cr. 0.7 (4) Dry mouth: Status: Acute Code(s): R68.2 - Dry mouth, unspecified SNOMED Code(s): 26914926 (5) Cystitis: Status: Acute Code(s): N30.90 - Cystitis, unspecified without hematuria SNOMED Code(s): 45423753 Assessment: UTI on rocephin, should be a C and S pending. Plan: Continue current management, check labs in the morning. Add a dose of IV mag. Likely d/c tomorrow.
[2022-02-23] MEDS ORDERED: MAGNESIUM SULFATE 1 GM/100 ML D5W 2 GM/200 ML BAG IV ONE (11:00)
[2022-02-23] MEDS: ROCEPHIN 1 GM/50 ML D5W 1 GM/50 ML BAG IV SCH (20:10)
[2022-02-24 05:26] LABS: BASOPHILS % (AUTO) 0.3 % (0.0-3.0); EOSINOPHILS # (AUTO) 0.4 K/ul (0.0-0.7); HEMATOCRIT 26.8 % (37.0-47.0); HEMOGLOBIN 8.5 g/dl (12.0-16.0); IMMATURE GRANULOCYTE # (AUTO) 0.1 (0.0-1.0); IMMATURE GRANULOCYTE % (AUTO) 0.7 % (0.0-5.0); LYMPHOCYTES % (AUTO) 8.5 (10.0-50.0); MEAN CORPUSCULAR HEMOGLOBIN 30.2 pg (27.0-31.0); MEAN CORPUSCULAR HGB CONC 31.7 (31.8-35.4); MEAN CORPUSCULAR VOLUME 95.4 fl (81.0-99.0); MONOCYTES # (AUTO) 0.8 K/uL (0.4-2.0); MONOCYTES % (AUTO) 6.9 (0-10); NEUTROPHILS # (AUTO) 9.5 K/ul (2.0-6.9); NEUTROPHILS % (AUTO) 80.6 % (42.2-75.2); PLATELET COUNT 328 10^3/uL (140-440); RDW COEFFICIENT OF VARIATION 15.1 % (11.6-14.8); RED BLOOD COUNT 2.81 10^6/ul (4.20-5.40); WHITE BLOOD COUNT 11.81 K/ul (4.6-10.2)
[2022-02-24 05:35] LABS: BLOOD UREA NITROGEN 5.7 mg/dL (7-17); CALCIUM 7.36 mg/dL (8.4-10.2); CARBON DIOXIDE 24.4 mmol/L (22-30.0); CHLORIDE 106.2 mmol/L (98-107); CREATININE 0.63 mg/dL (0.60-1.30); GLUCOSE 96.1 mg/dL (74-106); MAGNESIUM 1.8 mg/dL (1.6-2.3); POTASSIUM 3.44 mmol/L (3.5-5.1); SODIUM 132.7 mmol/L (134.5-145)
[2022-02-24] MEDS: NYSTATIN ORAL SUSP PO SCH ×4 (05:35→20:27)
[2022-02-24] MEDS: OXYCODONE PO PRN ×2 (07:37→22:15)
[2022-02-24] MEDS: FLORASTOR PO SCH ×3 (10:00→20:28)
[2022-02-24] MEDS: LOVENOX SUBCUT SCH (10:02)
[2022-02-24] MEDS: NYSTOP POWDER TP SCH ×2 (10:03→20:27)
[2022-02-24] MEDS: SODIUM CHLORIDE 1,000 ML IV SCH (11:15)
--- NOTE | 2022-02-24 14:06 | PCM.PROG ---
Date Seen by Provider: 02/24/22 Time Seen by Provider: 14:01 Subjective: pt stable, but refusing to exert herself or feed herself w/ assistance, d/w discharge planning w/ POA Saranya, also d/w probable metstatic cancer and the options for Oncologist at other institutions, Saranya is aware and is considering hospice at this time. Objective: Vitals: T=98.1 F, P=90, R=16, HV=548/68, SPO2=93 HEENT: [] Neck: [] Lungs: [] no respiratory distress CVS: [] Abdomen: []nondistended Extremities: [] Neurological: [] Skin: []pink Lab/Tests/Diagnostic Imaging: [] calcium 7.3, wbc 11.8 (1) Metastasis: Status: Acute Code(s): C79.9 - Secondary malignant neoplasm of unspecified site SNOMED Code(s): 189404410 (2) Hypercalcemia: Status: Acute Code(s): E83.52 - Hypercalcemia SNOMED Code(s): 68494482 (3) Dehydration, mild: Status: Acute Code(s): E86.0 - Dehydration SNOMED Code(s): 7785205855069 (4) Dry mouth: Status: Acute Code(s): R68.2 - Dry mouth, unspecified SNOMED Code(s): 95274984 (5) Cystitis: Status: Acute Code(s): N30.90 - Cystitis, unspecified without hematuria SNOMED Code(s): 68013780 Plan: continue present medical regimen, iv ns hydration, continue discharge planning care to Dr Vilchis at 19:00
--- NOTE | 2022-02-24 14:26 | RS.PTINEVL ---
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 pt answers questions appropriately with yes no answers. pt cries out in pain with any ROM. pt's daughter was adamant that she have a PT eval even though she had a PT consult with the conclusion being that she could not tolerate PT at this time. Daughter states "She is weak because she hasn't been up, she just needs to move." She states that her mom is snowed from pain meds, however pt is awake and alert. - Level of function Abilities prior to this admission: unsure, pt states she walked at home. Daughter unsure. Current Equipment Used at Home: walker Pain Assessement - Location "all over" Description: Sharp Intensity: 10 Pain Behavior: Moaning, Crying, Facial Grimacing, Screaming Pain Alleviating Factors: Medication Effects of Pain: pt points to pelvic area as the biggest source of pain. Interventions - Objective Observation: pt with pitting edema BUE and LE. pt with erythema R hand. Palpation Palpation Findings: Tenderness Comments:: pt cries out if PT lightly touches R hand. Balance - Sitting Balance and Reactions Static Sitting Balance: Zero (pt unable to maintain static sitting balance without max assist of 2.) Functional Mobility - Bed Mobility Rolling R/L: Max Assist, 2 person assist Scooting: Max Assist, 2 person assist Supine to Sit: Max Assist, 2 person assist Sit to Supine: Max Assist, 2 person assist Comments:: pt yells out in pain with sitting at side of bed. pt unable to assist and is totally dependent for all bed mobility and transfer. pt unable to maintain sitting balance without max of 2. pt crying and states she needs to lay back down. pt requires max of 2 to return to supine. Discussion with Bridget case liner that if nursing attempts to transfer pt to chair to use mechanical lift. - Safety Awareness Safety Awareness: Poor ARIAS INDEX SCORE: n/a Treatment time - Time with patient Length of Evaluation: 26 Total treatment time: 38 Patient Education - Education Teaching Recipient: Patient, Family Teaching Methods: Discussion Comments: Long discussion with patient and daughter regarding the fact that pt is not appropriate for skilled PT at this time. Her pain is not controlled and pt cannot tolerate PT. Assessment - Assessment Problem List:: Decreased level of function, Decreased safety/Risk of falls, Weakness, Pain limits previous level of function Rehab Potential: Poor Further Therapy Indicated?: No Candidate for Swing Bed for Therapy Services?: no pt is unable to tolerate skilled PT at this time Patient's Goal(s): n/a Plan Other:: evaluation only Frequency of Treatment: One time treatment Duration of Treatment: One Time Treatment Anticipated Discharge Destination: unknown Treatment Diagnosis (ICD 10 Codes): muscle weakness, pitting edema, decreased bed mobility, pain Has the Physician been added for Co-signature?: Yes
--- NOTE | 2022-02-24 14:27 | RS.OTINEVL ---
Subjective - Patient information Date of Evaluation: 02/24/22 Date of Arrival on Unit: 02/19/22 Admitted From:: [facility] Diagnosis: Hypercalcemia, malignancy, UTI PRECAUTIONS: Metastatic Cancer to Left pelvis, Right inguinal area Usual Living Arrangement: [facility] Living Arrangement Comments: Pt was living alone prior to her recent 10 day stay in a alf facility ([facility]). Home Environment: House Medical History Comments:: Hypercalcemia, metastatic cancer Surgical History: Knee Replacement Subjective Information/ Patient Comments:: "It hurts." - Level of function Abilities prior to this admission: Prior to this admission, patient was living in [facility] facility. Pt was not able to ambulate once she was admitted to [facility]. Current Level of Function: Dependent Comments: Pt is not able to sit EOB unless assisted. Pt is not able to roll in bed without maximum assistance. Pt is max assist with supine to sit. Current Equipment Used at Home: walker Pain Assessment - Pain Pain Score: 10 Pain Location Body Site: Abdomen Pain Aggravating Factors: Changing Position Pain Alleviating Factors: Medication, Position Change Interventions - Objective Patient Orientation: Person, Situation Current Interventions: IV's, Yates Catheter Observation: Pt has a suprapubic catheter. Pt is dependent in all ADLS. Pt is not able to feed herself and has to have assistance with drinking from a cup. Pt is maximum assistance with rolling in bed. Pt can move LUE. Interventions - ROM Right Upper Extremity AROM: Marked limitation Left Upper Extremity AROM: Slight limitation - Strength Right Upper Extremity Strength: Severe Weakness Left Upper Extremity Strength: Mild Weakness - Sensation Right Upper Extremity Sensation: Intact/Normal Left Upper Extremity Sensation: Intact/Normal Balance - Sitting Balance Static Sitting Balance: Poor Dynamic Sitting Balance: Zero - Standing Balance Static Standing Balance: Zero Dynamic Standing Balance: Zero ADL Skills - Bathing Comments:: Pt is dependent in all ADLS. - Comments Comments:: Pt is dependent in all ADLS. Functional Mobility - Bed Mobility Supine to Sit: Max Assist, 2 person assist Comments:: Pt dependent in all ADLS. - Transfers Stand to Sit: Not Tested Stand Pivot Transfers: Not Tested - Ambulation Weight Bearing Status: FWB Assistance needed with Ambulation: Not Tested Comments:: If patient has to be moved, a mechanical lift is the best method. - Safety Awareness Safety Awareness: Fair ARIAS INDEX SCORE: . Additional Treatment Performed - Time with patient Length of Evaluation: 25 Total treatment time: 25 Activities Do you enjoy playing games?: No Would you be interested in leaving your room for activities?: No Would you enjoy group activities?: No Do you have difficulty with your vision?: Yes Patient Education Patient Education: Education of Plan of Care Teaching Recipient: Patient Teaching Methods: Discussion Assessment Problem List:: Decreased level of function, Decreased safety/Risk of falls, Weakness, Pain limits previous level of function Rehab Potential: Poor Further Therapy Indicated?: No Comments: Pt's participation is limited due to pain of metastatic cancer. Evaluation Complexity: HISTORY: High, EXAM OF BODY SYSTEMS: High, CLINICAL DECISION MAKING: High Patient's Goal(s): For her body To not hurt. Short Term Goals - Goals GOAL 1: No Goals at this time. Senior Living Goals GOAL 1: No goals at this time. Plan Duration of Treatment: Eval only Anticipated Discharge Destination: [facility] Treatment Diagnosis (ICD 10 Codes): M62.81 Weakness Has the Physician been added for Co-signature?: Yes
[2022-02-24] MEDS: ROCEPHIN 1 GM/50 ML D5W 1 GM/50 ML BAG IV SCH (20:11)
[2022-02-24 21:08] VITALS: TEMP 97.1
[2022-02-25] MEDS: SODIUM CHLORIDE 1,000 ML IV SCH (03:11)
[2022-02-25 05:07] VITALS: BP 126/62
[2022-02-25] MEDS: OXYCODONE PO PRN ×2 (05:10→12:18)
[2022-02-25 05:31] LABS: BASOPHILS # (AUTO) 0.1 K/uL (0-0.2); BASOPHILS % (AUTO) 0.5 % (0.0-3.0); EOSINOPHILS # (AUTO) 0.4 K/ul (0.0-0.7); EOSINOPHILS % (AUTO) 3.4 % (0.0-7.0); HEMATOCRIT 25.1 % (37.0-47.0); HEMOGLOBIN 8.1 g/dl (12.0-16.0); IMMATURE GRANULOCYTE # (AUTO) 0.1 (0.0-1.0); IMMATURE GRANULOCYTE % (AUTO) 0.5 % (0.0-5.0); LYMPHOCYTES # (AUTO) 1.2 K/uL (0.60-3.4); LYMPHOCYTES % (AUTO) 10.8 (10.0-50.0); MEAN CORPUSCULAR HEMOGLOBIN 30.7 pg (27.0-31.0); MEAN CORPUSCULAR HGB CONC 32.3 (31.8-35.4); MEAN CORPUSCULAR VOLUME 95.1 fl (81.0-99.0); MONOCYTES # (AUTO) 0.8 K/uL (0.4-2.0); MONOCYTES % (AUTO) 7.4 (0-10); NEUTROPHILS # (AUTO) 8.6 K/ul (2.0-6.9); NEUTROPHILS % (AUTO) 77.4 % (42.2-75.2); PLATELET COUNT 319 10^3/uL (140-440); RED BLOOD COUNT 2.64 10^6/ul (4.20-5.40); WHITE BLOOD COUNT 11.14 K/ul (4.6-10.2)
[2022-02-25 05:42] LABS: BLOOD UREA NITROGEN 5.8 mg/dL (7-17); CALCIUM 6.86 mg/dL (8.4-10.2); CARBON DIOXIDE 24.5 mmol/L (22-30.0); CHLORIDE 105.9 mmol/L (98-107); CREATININE 0.63 mg/dL (0.60-1.30); GLUCOSE 81.2 mg/dL (74-106); MAGNESIUM 1.71 mg/dL (1.6-2.3); POTASSIUM 3.36 mmol/L (3.5-5.1); SODIUM 133.2 mmol/L (134.5-145)
[2022-02-25] MEDS: NYSTATIN ORAL SUSP PO SCH ×2 (06:03→11:39)
[2022-02-25] MEDS: LOVENOX SUBCUT SCH (08:49)
[2022-02-25] MEDS: FLORASTOR PO SCH (08:56)
[2022-02-25] MEDS: NYSTOP POWDER TP SCH (08:57)
--- NOTE | 2022-02-25 13:36 | PCM.DC ---
Final Diagnosis: hypercalcemia, metastatic cancer, uti, yeast, deconditioning, chronic pain Physical Exam Appearance: Obese Ill-appearing: None Pain Distress: Mild Eyes: Conjunctiva clear ENT: Oropharynx normal Neck: Supple Respiratory: Airway patent, Breath sounds clear and Breath sounds equal Cardiovascular: RRR GI/: Soft and Nontender Musculoskeletal: Edema Skin: Warm and Dry Neurological: Alert and Oriented Psychiatric: Affect appropriate (1) Metastasis: Status: Acute Code(s): C79.9 - Secondary malignant neoplasm of unspecified site SNOMED Code(s): 965716451 (2) Hypercalcemia: Status: Acute Code(s): E83.52 - Hypercalcemia SNOMED Code(s): 54836524 (3) Dehydration, mild: Status: Acute Code(s): E86.0 - Dehydration SNOMED Code(s): 7862878302304 (4) Dry mouth: Status: Acute Code(s): R68.2 - Dry mouth, unspecified SNOMED Code(s): 70127856 (5) Cystitis: Status: Acute Code(s): N30.90 - Cystitis, unspecified without hematuria SNOMED Code(s): 24667229 Reason for Hospitalization: hypercalcemia Prognosis/Condition at Discharge: fair Medications at Discharge: Ambulatory Orders Medication Instructions Recorded Saccharomyces boulardii 250 mg 250 mg PO BID 02/19/22 capsule bisacodyl 10 mg rectal suppository 10 mg IA DAILY PRN 02/19/22 levofloxacin 500 mg tablet 500 mg PO DAILY 02/19/22 magnesium hydroxide 400 mg/5 mL 5 ml PO DAILY PRN 02/19/22 oral suspension (Milk of Magnesia) oxycodone 5 mg tablet 5 mg PO Q6H PRN 02/19/22 Lab/Diagnostics: left pelvic mass on abdominal ct w/ mets, serum calcium normalized Education Provided to Patient and Family: oral fluids, rehabilitation Follow-ups: transferred to [facility] for oncology referral Discharge Disposition: Transfer Hospital Course: pt improved overall, resolved hypercalcemia, treated uti, however, pt resisting oral intake, resisting OT and PT Plan: transfer to [facility] Dr Wolf for oncology referral before NH placement
== END 2022-02-25 14:40 | disposition short-term general hospital (02) | DRG 844 ==
LOC: MEDSURG A 16:59 → ED 16:59 → MEDSURG A 22:14
PROVIDERS: ADMIT Internal Medicine Geriatric Medicine; ATTEND Emergency Medicine Emergency Medical Services
DX: Z51.81 Encounter for therapeutic drug level monitoring; E86.0 Dehydration; Z79.899 Other long term (current) drug therapy; N30.90 Cystitis, unspecified without hematuria; C79.9 Secondary malignant neoplasm of unspecified site; G89.3 Neoplasm related pain (acute) (chronic); Z72.3 Lack of physical exercise; E83.52 Hypercalcemia; B37.41 Candidal cystitis and urethritis